=== PATIENT | male | born 1970 | race African-American/Black ===

== ENCOUNTER 2020-07-09 10:59 | Emergency (ER) | payer SELFPAY ==
[~2020-07-09] VITALS: Ht 172.7 cm; Wt 99.8 kg
--- NOTE | 2020-07-09 11:41 | Emergency Room Report ---
History of Present Illness General Chief Complaint: Upper Respiratory Illness Source: Patient Present Illness HPI Patient presents with severe cough. Is been going on for 3 days. He is herself wheezing. He has used albuterol in the past but does not have any at this time. He is coughing up green phlegm. He has had some chills but no fever. He does not believe he has been exposed to Covid positive contacts. His voice is changed. Denies any sore throat or ear pain. There is no nausea, vomiting or diarrhea. He denies any chest pain. The patient is a smoker. No sore throat, chest pain, palpitations, dysuria, abdominal pain, joint pain, rashes, depression, anxiety, visual changes, dizziness, headache. 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 Patient History Past Medical History: see triage record Social History: Reports: smoking Social History Narrative hale Reviewed Nursing Documentation: PMH: Agreed; PSxH: Agreed Nursing Documentation-PMH Past Medical History: No History, Except For Hx Hypertension: Yes Review of Systems All Other Systems: negative except mentioned in HPI Physical Exam Vital Signs Date Time Temp Pulse Resp B/P (MAP) Pulse Ox O2 Delivery O2 Flow Rate FiO2 07/09/20 11:16 98.1 75 19 123/83 (96) 99 Room Air Sp02 EP Interpretation: reviewed, normal General Appearance: well appearing, no apparent distress, GCS 15, non-toxic Head: normocephalic Eyes: bilateral eye normal inspection, bilateral eye PERRL, bilateral eye EOMI ENT: moist mucus membranes, other - Hoarseness Neck: supple Respiratory: wheezing, expiration Cardiovascular #1: regular rate, rhythm, no edema Cardiovascular #2: 2+ radial (R) Gastrointestinal: normal inspection, non-distended Musculoskeletal: back normal, normal range of motion, no calf tenderness, gait/station normal Neurologic: alert, oriented x3, grossly normal Psychiatric: mood/affect normal Skin: no rash, warm/dry, other - Fully dressed Medical Decision Making Diagnostic Impression: Primary Impression: Asthmatic bronchitis with acute exacerbation Qualified Codes: J45.41 - Moderate persistent asthma with (acute) exacerbati on Additional Impressions: Bronchospasm Upper respiratory infection Qualified Codes: J06.9 - Acute upper respiratory infection, unspecified COVID-19 ruled out by laboratory testing ER Course Patient presents with cough and wheezing history of smoking and use of an inhaler as before. Differential includes COVID-19, pneumonia, bronchitis, bronchospasm amongst others. O2 saturation is 99%. This excludes a pulmonary embolus or severe bronchopulmonary disease. Patient denies any chest pain and therefore EKG is not indicated. Patient will receive a DuoNeb. Chest x-ray is ordered and Covid test. Covid test negative. Chest x-ray no infiltrates. Patient improved with treatment. Discussed treatment plan with patient. No medical emergency at this time. Patient stable for outpatient observation and treatment. Microbiology Date/Time Source Procedure Growth Status 07/09/20 11:35 Nasopharynx SARS-CoV-2 Antigen (Rapid)(ALAYNA) - Final Complete Chest X-Ray Diagnostic Results Chest X-Ray Diagnostic Results : Chest X-Ray Ordered: Yes # of Views/Limited/Complete: 1 View Indication: Other EP Interpretation: Yes Interpretation: no consolidation, no effusion, no pneumothorax Impression: No acute disease Electronically Signed by: Electronically signed by Levon Mahajan MD Last Vital Signs Date Time Temp Pulse Resp B/P (MAP) Pulse Ox O2 Delivery O2 Flow Rate FiO2 07/09/20 14:09 75 19 122/76 99 Room Air 07/09/20 12:15 21 07/09/20 11:16 98.1 Status: improved Disposition: HOME, SELF-CARE Condition: Improved Scripts Albuterol Sulfate* (Albuterol Sulfate Hfa*) 8.5 Gm Hfa.aer.ad 2 PUFF INH Q6H, #1 INH 1 Refill Prov: Levon Mahajan MD 07/09/20 Guaifenesin/Dextromethorphan (Robitussin Cough-Chest Dm Liq) 237 Ml Liquid 10 ML PO Q6HR, #120 ML 1 Refill Prov: Levon Mahajan MD 07/09/20 Levon Mahajan MD Jul 09, 2020 11:41
[2020-07-09] MEDS ORDERED: Albuterol/Ipratropium 3ml neb HHN ONE (11:45)
--- NOTE | 2020-07-09 11:46 | NUR ---
pt arrived for sore throat/loss of voice for the past few days. pt presents with cough, states green mucus with coughing. pt denies sob, nausea, vomting, diarrhea, fever, chills. pt denies being around nayone with covid. pt states drinking alcohol & using meth today. pt states every day smoker. pt educated regarding risk of smoking. pt placed in privat room. VSS. droplet/contact precautions in place. covid swab sent, called rt for breathing tx, called for xray.
[2020-07-09] MEDS ORDERED: ROBITUSSIN COU237 M2 PO (13:08)
[2020-07-09] MEDS ORDERED: ALBUTEROL SULF8.5 G1 INH (13:08)
[2020-07-09 14:09] VITALS: BP 122/76
--- NOTE | 2020-07-09 14:10 | NUR ---
ED Nurse Note: Pt cleared by health care Provider for discharge. DC instructions/prescription was given and explained to pt and verbalized understanding of teachings. All medical deviecs such as ID band removed. Pt is AAO x4, ambulatory and left with all personal belongings.
--- NOTE | 2020-07-09 14:49 | Diagnostic Imaging Report ---
Indication: Cough Technique: One view of the chest Comparison: none Findings: Lungs and pleural spaces are clear. The heart is upper limits normal in size. The aorta is tortuous. The upper mediastinum is unremarkable. Impression: Negative
== END 2020-07-09 14:11 | disposition home or self-care (01) ==
LOC: EMR 11:50
DX: J45.41 Moderate persistent asthma with (acute) exacerbation (principal); J20.9 Acute bronchitis, unspecified; J06.9 Acute upper respiratory infection, unspecified; I10 Essential (primary) hypertension; F17.200 Nicotine dependence, unspecified, uncomplicated
CPT/HCPCS: 71045; 94640; 99283; J7620